=== PATIENT | female | born 1995 | race American Indian/Alaskan Native ===

== ENCOUNTER 2017-07-21 19:04 | Emergency (ER) | payer SELFPAY ==
[2017-07-21 19:24] VITALS: BP 121/76
[2017-07-22] MEDS ORDERED: NORCO 5/325 PO ONE (01:10)
[2017-07-22] MEDS ORDERED: NORCO 5/325 ONE (01:10)
--- NOTE | 2017-07-22 02:42 | Emergency Department Report ---
ED ENT HPI - General Chief complaint: Dental/Oral Stated complaint: TOOTHACHE Time Seen by Provider: 07/22/17 02:18 Source: patient Mode of arrival: Ambulatory Limitations: No Limitations - History of Present Illness Initial comments: This is a 21-year-old female presents with dental pain for 3 weeks. Patient reports crown fell off for 2 one month ago and she has been unable to have it replaced. She has recently moved here from [place] and has not found a dentist that will repair 2 without insurance. She is currently taking over- the-counter and see us for pain with no pain control. Patient reports pain is 10 out of 10 and constant. It is worse with eating. She is now starting to feel pain in upper gums. Denies difficulty swallowing, gone swelling, fever, drainage, nausea or vomiting. MD complaint: tooth pain -: week(s) (3 weeks) Location: tooth # (#9) Severity: severe Severity scale (0 -10): 10 Quality: aching, sharp Consistency: constant Improves with: none Worsens with: eating Context- Dental: history of dental caries, poor dental care, other (crown fell off) Associated Symptoms: toothache - Related Data Previous Rx's Medication Instructions Recorded Last Taken Type RX: Clindamycin [Clindamycin CAP] 300 mg PO Q8H #30 cap 07/22/17 Unknown Rx RX: traMADol [Ultram 50 MG tab] 50 mg PO Q6HR PRN #15 tablet 07/22/17 Unknown Rx Allergies Allergy/AdvReac Type Severity Reaction Status Date / Time Penicillins Allergy Hives Verified 07/21/17 19:24 phenobarbital Allergy Hives Verified 07/21/17 19:25 phenytoin [From Dilantin] Allergy Hives Verified 07/21/17 19:24 ED Dental HPI - General Chief complaint: Dental/Oral Stated complaint: TOOTHACHE Time Seen by Provider: 07/22/17 02:18 Source: patient Mode of arrival: Ambulatory Limitations: No Limitations - Related Data Previous Rx's Medication Instructions Recorded Last Taken Type RX: Clindamycin [Clindamycin CAP] 300 mg PO Q8H #30 cap 07/22/17 Unknown Rx RX: traMADol [Ultram 50 MG tab] 50 mg PO Q6HR PRN #15 tablet 07/22/17 Unknown Rx Allergies Allergy/AdvReac Type Severity Reaction Status Date / Time Penicillins Allergy Hives Verified 07/21/17 19:24 phenobarbital Allergy Hives Verified 07/21/17 19:25 phenytoin [From Dilantin] Allergy Hives Verified 07/21/17 19:24 ED Review of Systems ROS: Stated complaint: TOOTHACHE Other details as noted in HPI Constitutional: denies: chills, fever ENT: dental pain (#9 tooth pain). denies: ear pain, throat pain, congestion Respiratory: denies: cough, shortness of breath, wheezing Cardiovascular: denies: chest pain, palpitations Gastrointestinal: denies: abdominal pain, nausea, diarrhea Neurological: denies: headache, weakness, paresthesias Psychiatric: denies: anxiety, depression ED Past Medical Hx - Past Medical History Previous Medical History?: Yes Hx Seizures: Yes - Surgical History Past Surgical History?: Yes Additional Surgical History: bladder surgery - Social History Smoking Status: Current Every Day Smoker Substance Use Type: None - Medications Home Medications: Home Medications Medication Instructions Recorded Confirmed Last Taken Type RX: Clindamycin [Clindamycin CAP] 300 mg PO Q8H #30 cap 07/22/17 Unknown Rx RX: traMADol [Ultram 50 MG tab] 50 mg PO Q6HR PRN #15 tablet 07/22/17 Unknown Rx ED Physical Exam - General Limitations: No Limitations General appearance: alert, in no apparent distress - ENT ENT exam: Present: mucous membranes moist, other (#9, missing crown, dental caries, swelling of mucosa) - Respiratory Respiratory exam: Present: normal lung sounds bilaterally. Absent: respiratory distress - Cardiovascular Cardiovascular Exam: Present: regular rate, normal rhythm, normal heart sounds. Absent: systolic murmur, diastolic murmur, rubs, gallop - GI/Abdominal GI/Abdominal exam: Present: soft, normal bowel sounds - Neurological Exam Neurological exam: Present: alert, oriented X3 - Psychiatric Psychiatric exam: Present: normal affect, normal mood ED Course Vital Signs 07/21/17 07/22/17 19:20 02:52 Temperature 98.7 F Pulse Rate 55 L 63 Respiratory 16 17 Rate Blood Pressure 121/76 O2 Sat by Pulse 100 99 Oximetry ED Medical Decision Making - Medical Decision Making This is a 21-year-old female that presents with tooth pain for 3 week. Patient is stable and was examined by me. Given [place] once in ER. Susceptible of dental caries. Discussed plan with patient. She agreed with ER plan. Discharged home with clindamycin and tramadol. Follow up with dentist and referral to [facility]. Critical care attestation.: If time is entered above; I have spent that time in minutes in the direct care of this critically ill patient, excluding procedure time. ED Disposition Clinical Impression: Dental caries, Toothache Disposition: TO HOME OR SELFCARE Is pt being admited?: No Does the pt Need Aspirin: No Condition: Stable Instructions: Dental Caries (ED), Toothache (ED) Additional Instructions: Complete all days of clindamycin as prescribed for 14 days. Follow up with Dentist at [facility] in 24-72 hours. Prescriptions: RX: Clindamycin [Clindamycin CAP] 300 mg PO Q8H #30 cap RX: traMADol [Ultram 50 MG tab] 50 mg PO Q6HR PRN #15 tablet PRN Reason: Pain Referrals: [facility] [Outside] - 3-5 Days [facility] [Outside] - 3-5 Days [facility] [Outside] - 3-5 Days [facility] [Outside] - 3-5 Days Forms: Accompanied Note, Work/School Release Form(ED) Time of Disposition: 02:46 Print Language: [email or web address]
== END 2017-07-22 02:52 | disposition home or self-care (01) ==
LOC: ED 19:04
DX: K08.89 Other specified disorders of teeth and supporting structures (principal); K02.9 Dental caries, unspecified; F17.200 Nicotine dependence, unspecified, uncomplicated; Z88.0 Allergy status to penicillin; Z88.8 Allergy status to other drugs, medicaments and biological substances
CPT/HCPCS: 99282